=== PATIENT | female | born 1990 | race African-American/Black ===

== ENCOUNTER 2019-09-26 11:39 | Inpatient (IN) ==
[2019-09-26] MEDS ORDERED: hydrALAZINE 20 MG/1 ML VIAL ONE (12:43)
[2019-09-26 12:54] LABS: Basophils % 0.3 % (0.0-0.8); Eosinophils # 0.1 10*3/uL (0.0-0.87); Hematocrit 35.6 VOL% (35.7-47.0); Immature Granulocytes % 1.3 %; Immature Granulocytes Absolute 0.13 #; Lymphocytes # 2.3 10*3/uL (1.4-4.0); Lymphocytes % 23.3 % (21.3-54.2); Mean Corpuscular HGB Conc 33.7 GM/DL (32-36); Mean Corpuscular Volume 85.4 FL (87-102); Mean Platelet Volume 10.2 FL (9.6-12.0); Monocytes % 8.9 % (1.7-12.7); Neutrophils % 65.2 % (38.7-73.9); Platelet Count 283 T/CUMM (130-400); Red Blood Count 4.17 MC/CUMM (3.8-5.5); Red Cell Distribution Width 14.1 % (9.3-17.3); White Blood Count 9.7 T/CUMM (4-12)
[2019-09-26 12:57] LABS: Apearance,Urine CLEAR (Clear); Bacteria,Urine Occasional /HPF (Few); Bilirubin,Urine Negative (Negative); Blood, Urine Negative (Negative); Glucose,Urine (UA) Negative (Negative); Hyaline Casts,Urine 5 /LPF (0-3); Ketones,Urine 80 mg/dL (Negative); Mucus,Urine Many /LPF (Occasional); Nitrite,Urine Negative (Negative); Protein,Urine Negative; RBC,Urine 5 /HPF (0-4); Squamous Epithelial Cell,Urine Occasional /HPF (0-10); Urine Color Yellow (Yellow); Urine Urobilinogen < 2.0 EU/DL (0.2-1.0); WBC,Urine 6 /HPF (0-6)
[2019-09-26] MEDS: hydrALAZINE 20 MG/1 ML VIAL IV PRN ×4 (12:58→16:01)
[2019-09-26 13:09] LABS: PT Patient Result 10.6 SECS (9.6-12.2)
[2019-09-26 13:12] LABS: Bilirubin,Total 0.6 MG/DL (0.2-1.0); Calcium 9.1 MG/DL (8.5-10.1); Osmolality,Calculated 273.4 MOS/KG (273-304); Total Protein 7.1 G/DL (6.4-8.3); Uric Acid 4.5 MG/DL (2.6-6.0)
[2019-09-26] MEDS ORDERED: LABETALOL 100 MG TABLET PO SCH (13:29)
[2019-09-26] MEDS ORDERED: FAMOTIDINE 20 MG/2 ML VIAL IV ONE (16:40)
[2019-09-26] MEDS ORDERED: ceFAZolin 3,000 MG in SYRINGE 1 EACH IV ONE (16:40)
[2019-09-26] MEDS ORDERED: CITRIC ACID/SODIUM CITRATE 30 ML UDCUP PO ONE (16:40)
[2019-09-26] MEDS ORDERED: MAGNESIUM SULF RIDER 100 ML IV ONE (16:49)
[2019-09-26] MEDS ORDERED: PHENYLEPHRINE 1 MG/10 ML SYRINGE IV ONE (16:58)
[2019-09-26] MEDS ORDERED: INFLUENZA VIRUS VACCINE 0.5 ML SYRINGE IM ONE (16:58)
[2019-09-26] MEDS ORDERED: BUPIVACAINE SPINAL 0.75% 2 ML AMP SPINAL ONE (16:59)
[2019-09-26] MEDS ORDERED: MORPHINE 10 MG/10 ML VIAL ONE (16:59)
[2019-09-26] MEDS ORDERED: ONDANSETRON 4 MG/2 ML VIAL ONE (16:59)
[2019-09-26] MEDS ORDERED: MAGNESIUM SULF DRIP 40 GM/1,000 ML ML IV SCH (17:00)
[2019-09-26] MEDS ORDERED: LACTATED RINGERS 1,000 ML IV SCH ×2 (17:00→19:00)
[2019-09-26] MEDS ORDERED: OXYTOCIN 10 UNIT/ML VIAL IM ONE (17:04)
[2019-09-26] MEDS ORDERED: OXYTOCIN 10 UNIT/ML VIAL ONE (17:04)
[2019-09-26] MEDS ORDERED: OXYTOCIN/LR 30 UNIT/1,000 ML BAG IV ONE (17:04)
[2019-09-26 17:24] LABS: PT Patient Result 10.4 SECS (9.6-12.2); Partial Thromboplastin Time 29.3 SECS (20.8-36.0)
[2019-09-26 17:33] LABS: Albumin 3.1 G/DL (3.4-5.0); Bilirubin,Total 0.8 MG/DL (0.2-1.0); Osmolality,Calculated 268.8 MOS/KG (273-304); Total Protein 7.3 G/DL (6.4-8.3)
[2019-09-26 18:37] LABS: Cord Arterial Blood HCO3 20.4 MMOL/L
[2019-09-26] MEDS ORDERED: RHO(D) IMMUNE GLOBULIN 300 MCG SYRINGE IM ONE (18:39)
[2019-09-26] MEDS ORDERED: OXYTOCIN/LR 20 UNIT/1,000 ML BAG IV ONE (18:39)
[2019-09-26] MEDS ORDERED: ONDANSETRON 4 MG/2 ML VIAL IV PRN (18:39)
[2019-09-26] MEDS ORDERED: ACETAMINOPHEN 325 MG TABLET PO PRN (18:39)
[2019-09-26 18:40] LABS: Cord Venous Blood HCO3 21.7 MMOL/L; Cord Venous Blood PCO2 50.7 MMHG; Cord Venous Blood PO2 23.5
[2019-09-26] MEDS ORDERED: HYDROmorphone 2 MG/1 ML VIAL IV PRN (18:42)
[2019-09-26] MEDS ORDERED: fentaNYL 100 MCG/2 ML VIAL ONE (18:47)
[2019-09-26] MEDS ORDERED: MIDAZOLAM 2 MG/2 ML VIAL ONE (18:48)
[2019-09-26] MEDS ORDERED: ETOMIDATE 20 MG/10 ML VIAL IV ONE (18:48)
[2019-09-26] MEDS ORDERED: SUCCINYLCHOLINE 200 MG/10 ML VIAL ONE (18:49)
[2019-09-26] MEDS ORDERED: SEVOFLURANE 1 UNIT/15 MINUTE INH ONE (18:50)
[2019-09-26 18:59] LABS: Apearance,Urine CLEAR (Clear); Bilirubin,Urine Negative (Negative); Blood, Urine Negative (Negative); Glucose,Urine (UA) Negative (Negative); Ketones,Urine 80 mg/dL (Negative); Mucus,Urine Few /LPF (Occasional); Nitrite,Urine Negative (Negative); Protein,Urine Negative; RBC,Urine 4 /HPF (0-4); Squamous Epithelial Cell,Urine Occasional /HPF (0-10); Urine Color Yellow (Yellow); Urine Specific Gravity 1.019 (1.001-1.035); Urine Urobilinogen < 2.0 EU/DL (0.2-1.0); WBC,Urine 2 /HPF (0-6)
[2019-09-27] MEDS ORDERED: ceFAZolin 1,000 MG in SYRINGE 1 EACH IV SCH ×2 (01:00→11:00)
[2019-09-27] MEDS ORDERED: SODIUM CHLORIDE 0.9% 100 ML IV ONE (03:45)
[2019-09-27] MEDS: DOCUSATE SODIUM 100 MG CAPSULE PO SCH ×2 (11:26→20:34)
[2019-09-27] MEDS: MAGNESIUM HYDROXIDE SUSP 30 ML UDCUP PO PRN ×2 (11:26→20:34)
[2019-09-27] MEDS: IBUPROFEN 800 MG TABLET PO PRN ×2 (11:26→20:35)
[2019-09-27] MEDS: MULTIVITAMIN (PRENATAL) TABLET PO SCH (14:54)
[2019-09-27] MEDS: METOCLOPRAMIDE 10 MG TABLET PO SCH ×2 (14:54→23:59)
[2019-09-27] MEDS: SIMETHICONE CHEW 80 MG TABLET PO PRN (20:34)
[2019-09-28] MEDS ORDERED: BISACODYL 10 MG SUPP RECTAL PRN (04:13)
[2019-09-28] MEDS: SIMETHICONE CHEW 80 MG TABLET PO PRN ×2 (04:18→20:35)
[2019-09-28] MEDS: IBUPROFEN 800 MG TABLET PO PRN (05:44)
[2019-09-28] MEDS: METOCLOPRAMIDE 10 MG TABLET PO SCH (08:30)
[2019-09-28] MEDS: DOCUSATE SODIUM 100 MG CAPSULE PO SCH ×2 (08:31→20:35)
[2019-09-28] MEDS: MULTIVITAMIN (PRENATAL) TABLET PO SCH (08:31)
[2019-09-28] MEDS: MAGNESIUM HYDROXIDE SUSP 30 ML UDCUP PO PRN (20:35)
[2019-09-29] MEDS: DOCUSATE SODIUM 100 MG CAPSULE PO SCH (08:31)
[2019-09-29] MEDS: MULTIVITAMIN (PRENATAL) TABLET PO SCH (08:31)
[2019-09-29 11:40] VITALS: BP 143/88
== END 2019-09-29 14:30 | disposition home or self-care (01) | DRG 540 ==
LOC: N.LDOUT 11:39 → N.LD 11:40 → N.OB 09-27 13:36
PROVIDERS: ADMIT Obstetrics & Gynecology; ATTEND Obstetrics & Gynecology
PROC: LDCSECT (ICD-10-PCS; 2019-09-26 16:30)